=== PATIENT | female | born 1970 | race Caucasian/White ===

== ENCOUNTER 2019-02-24 15:30 | Emergency (ER) | payer SELFPAY ==
--- OUTSIDE RECORDS SUMMARY | 2019-02-24 15:32 | XMS REPORT | Continuity of Care Document ---
:1970 Author Organization [employer] Care Team Providers Name Role Phone [employer] Unavailable Unavailable Problems Problem Status Onset Classification Date Comments Source Date Reported Pain in lower Active Diagnosis 11/14/2017 CL extremity due to Cardiovascular sciatica Precordial chest Active Diagnosis 11/14/2017 CL pain Cardiovascular SOB Active Diagnosis 11/14/2017 CL Cardiovascular Tachycardia Active Diagnosis 11/14/2017 CL Cardiovascular Pre-syncope Active Diagnosis 11/14/2017 CL Cardiovascular Deep Active Diagnosis 11/14/2017 CL phlebothrombosis Cardiovascular in , unspecified trimester PE Active Diagnosis 11/14/2017 CL Cardiovascular Medications Medication Details Route Status Patient Ordering Order Source Instructions Provider Date Tramadol HCl 1 tablet Orally Active 50 MG Orally Wiley CL as needed every 6 hrs Cardiovascular Vit D as direct NA Active Wiley CL Cardiovascular Potassium 1 tablet po Active 20 meq po Wiley CL Chloride daily Cardiovascular Multi For Her not Orally Active - Orally Wiley CL defined Cardiovascular Calcium as direct NA Active Wiley CL Cardiovascular Furosemide 1 tablet Orally Active 20 MG Orally Wiley CL Once a day Cardiovascular Allergies, Adverse Reactions, Alerts Substance Category Reaction Severity Reaction Status Date Comments Source type Reported N.K.D.A. Adverse Info Not Adverse Active CL Reaction Available Reaction 8 Cardiovascula r Immunizations No Data Provided for This Section Results No Data Provided for This Section Pathology Reports No Data Provided for This Section Diagnostic Reports No Data Provided for This Section Consultation Notes No Data Provided for This Section Discharge Summaries No Data Provided for This Section History and Physicals No Data Provided for This Section Vital Signs Vital Sign Value Date Comments Source Weight 155 11/12/2017 CL Cardiovascular Height 62 11/12/2017 CL Cardiovascular Heart Rate 72 11/12/2017 CL Cardiovascular Diastolic (mm Hg) 90 11/12/2017 CL Cardiovascular Systolic (mm Hg) 130 11/12/2017 CL Cardiovascular Encounters No Data Provided for This Section Procedures No Data Provided for This Section Assessment and Plan No Data Provided for This Section Plan of Care No Data Provided for This Section Social History No Data Provided for This Section Family History No Data Provided for This Section Advance Directives No Data Provided for This Section Functional Status No Data Provided for This Section
--- OUTSIDE RECORDS SUMMARY | 2019-02-24 15:32 | XMS REPORT | Clinical Summary ---
:1970 Author Organization [facility] Address [address] [place] [address] Care Team Providers Name Role Phone Emerald Padgett MD Primary Care Provider Allergies No Known Allergies Medications Medication Sig Dispensed Refills Start Date End Date Status esomeprazole (NexIUM) TK 1 C PO QD 0 10/15/2017 Active 40 MG capsule furosemide (LASIX) 20 TK 1 T PO QD 1 10/15/2017 Active mg tablet potassium chloride TK 1 T PO QD WF 1 10/15/2017 Active (KLOR-CON) 10 MEQ CR tablet traMADol (ULTRAM) 50 mg TK 1 T PO Q 6 H 0 09/17/2017 Active tablet PRN cholecalciferol, Take 1,000 Units 0 Active vitamin D3, (VITAMIN by mouth daily. D3) 1,000 unit tablet fluticasone (FLONASE 2 sprays (100 mcg 15.8 mL 0 11/06/2017 Active ALLERGY RELIEF) 50 total) by Each mcg/actuation nasal Nare route daily. sprayIndications: Sinus congestion Active Problems Problem Noted Date Tachycardia 11/06/2017 History of gastritis 11/06/2017 Venous insufficiency 11/06/2017 Neck swelling 11/06/2017 Vitamin D deficiency 11/06/2017 Sinus congestion 11/06/2017 Family History Medical History Relation Name Comments Aneurysm Father Diabetes Mother Hypertension Mother Thyroid disease Mother Relation Name Status Comments Father Mother Alive Social History Tobacco Use Types Packs/Day Years Used Date Former Smoker Smokeless Tobacco: Never Used Tobacco Cessation: Counseling Given: Yes Alcohol Use Drinks/Week oz/Week Comments No Sex Assigned at Date Recorded Not on file Job Start Date Occupation Industry Not on file Not on file Not on file Travel History Travel Start Travel End No recent travel history available. Last Filed Vital Signs Not on file Plan of Treatment Health Maintenance Due Date Last Done Comments INFLUENZA VACCINE 02/13/2019 Results Not on fileafter 02/23/2018 Advance Directives Patient has advance care planning documents on file. For more information, please contact:Placido Patel[address] [place] [address]
--- OUTSIDE RECORDS SUMMARY | 2019-02-24 15:33 | XMS REPORT ---
:1970 Author Organization [employer] Care Team Providers Name Role Phone Shonda Jama Provider Role Unavailable Allergies, Adverse Reactions, Alerts Substance Reaction Event Type N.K.D.A. Info Not Available Non Drug Allergy Problems Problem Type Condition Code Onset Dates Condition Status Assessment Pain in lower extremity due to M54.30 Active sciatica Assessment Precordial chest pain R07.2 Active Assessment SOB (shortness of breath) R06.02 Active Problem Pain in lower extremity due to M54.30 Active sciatica Assessment Tachycardia R00.0 Active Assessment Pre-syncope R55 Active Assessment Deep phlebothrombosis in , O22.30 Active unspecified trimester Assessment PE (pulmonary thromboembolism) I26.99 Active Medications Medication Code Code Instructions Start End Status Dosage System Date Date Tramadol HCl NDC 68195312518 50 MG Orally Active 1 tablet every 6 hrs as needed Vit D NDC 0 Active as direct Potassium NDC 0 20 meq po daily Active 1 tablet Chloride Multi For Her ND 55063408256 - Orally Active not defined Calcium NDC 0 Active as direct Furosemide NDC 50772498679 20 MG Orally Active 1 tablet Once a day Vital Signs Date/Time: November 12, 2017 BMI 28.35 Index Weight 155 lbs Height 62 in Cardiac Monitoring Heart Rate 72 /min Blood Pressure Diastolic 90 mm Hg Blood Pressure Systolic 130 mm Hg Results No Known Results Summary Purpose [employer] Submission
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
[2019-02-24 16:54] LABS: Absolute Lymphocytes (CBC) 2.6 K/uL (0.7-4.9); Hematocrit 38.7 % (36.0-45.0); MPV 7.8 fL (7.6-11.3)
[2019-02-24 17:11] LABS: BUN Blood Urea Nitrogen 12 mg/dL (7-18); Bicarbonate 27 mmol/L (21-32); Glucose Level 83 mg/dL (74-106); Potassium 3.7 mmol/L (3.5-5.1); Sodium Level 143 mmol/L (136-145); Troponin (Emerg Dept Use Only) < 0.02 ng/mL (0.0-0.045)
[2019-02-24 17:25] LABS: Urine Blood NEGATIVE (NEG); Urine Glucose NEGATIVE (NEG); Urine Protein NEGATIVE (NEG); Urine pH 7.5 (5.0-7.0)
--- NOTE | 2019-02-24 17:33 | RAD REPORT ---
EXAM DESCRIPTION: CT - Chest For Pe Angio - 02/24/2019 5:22 pm CLINICAL HISTORY: Chest pain, lower extremity swelling, shortness of breath COMPARISON: None. TECHNIQUE: Dynamically enhanced 3 mm thick images of the chest were obtained during administration o f approximately 150mL Isovue 370 IV contrast. Coronal and oblique MIP reconstruction images were gene rated and reviewed. Exam utilizes a protocol to evaluate the pulmonary arterial tree. All CT scans are performed using dose optimization technique as appropriate and may include automated exposure control or mA/KV adjustment according to patient size. FINDINGS: No pulmonary emboli are identified. The aorta as imaged shows no acute or suspicious finding. No pericardial thickening or effusion. No infiltrate or mass in the lung parenchyma. No pleural effusion or pleural thickening. No mediastinal or hilar suspicious masses. No chest wall masses or abnormal axillary lymphadenopathy. IMPRESSION: No pulmonary emboli identified. No other significant or suspicious findings.
--- NOTE | 2019-02-24 18:15 | ER ---
Nurse's Notes [facility] Name: Rose Marie Lawrence Age: 48 yrs Sex: Female : 1970 Arrival Date: 02/24/2019 Time: 15:32 Bed 5 Private MD: Diagnosis: Chronic embolism and thrombosis of unspecified deep veins of left lower extremity Presentation: 02/24 15:34 Presenting complaint: Patient states: i have lower extremity swelling and i have hx of hj DVT and my chest hurts, hx of PE; reports heavy sharp pain on my chest; reports SOB; reports CP started today;. Transition of care: patient was not received from another setting of care. Onset of symptoms was February 24, 2019. Risk Assessment: Do you want to hurt yourself or someone else? Patient reports no desire to harm self or others. Initial Sepsis Screen: Does the patient meet any 2 criteria? No. Patient's initial sepsis screen is negative. Does the patient have a suspected source of infection? No. Patient's initial sepsis screen is negative. Care prior to arrival: None. 15:34 Method Of Arrival: Ambulatory 15:34 Acuity: WAYNE 3 hj CARDIAC CATH TECHNOLOGIST: 16:43 LMP N/A - . tw2 Historical: - Allergies: 15:37 No Known Allergies; hj - PMHx: 15:37 PE; DVT; hj - PSHx: 15:37 None; hj - Immunization history:: Adult Immunizations. - Social history:: Smoking status: . - Ebola Screening: : Patient denies travel to an Ebola-affected area in the 21 days before illness onset. - Family history:: not pertinent. - Hospitalizations: : No recent hospitalization is reported. Screenin:19 Abuse screen: Denies threats or abuse. Nutritional screening: No deficits noted. tw2 Tuberculosis screening: No symptoms or risk factors identified. Fall Risk None identified. Assessment: 16:43 General: Appears in no apparent distress. obese, well groomed, Behavior is calm, tw2 cooperative, appropriate for age. Pain: Complains of pain in chest and left leg Pain does not radiate. Pain began 2-3 days ago. Neuro: Level of Consciousness is awake, alert, obeys commands, Oriented to person, place, time, situation. Cardiovascular: Heart tones S1 S2 Capillary refill < 3 seconds Patient's skin is warm and dry. Cardiovascular: Edema is 2+ to left midcalf, left ankle and left foot. Respiratory: Airway is patent Respiratory effort is even, unlabored, Respiratory pattern is regular, symmetrical, Breath sounds are clear bilaterally. GI: No signs and/or symptoms were reported involving the gastrointestinal system. Abdomen is round non-distended, obese, : No signs and/or symptoms were reported regarding the genitourinary system. EENT: No signs and/or symptoms were reported regarding the EENT system. Derm: No signs and/or symptoms reported regarding the dermatologic system. Musculoskeletal: Reports pain in left leg. 17:48 Reassessment: Patient appears in no apparent distress at this time. No changes from tw2 previously documented assessment. Patient and/or family updated on plan of care and expected duration. Pain level reassessed. Patient is alert, oriented x 3, equal unlabored respirations, skin warm/dry/pink. 18:41 Reassessment: Patient appears in no apparent distress at this time. No changes from tw2 previously documented assessment. Patient and/or family updated on plan of care and expected duration. Pain level reassessed. Patient is alert, oriented x 3, equal unlabored respirations, skin warm/dry/pink. Vital Signs: 15:37 BP 127 / 73; Pulse 85; Resp 18; Temp 98.1(TE); Pulse Ox 98% on R/A; Weight 61.23 kg; hj Height 5 ft. 3 in. (160.02 cm); Pain 6/10; 16:45 BP 127 / 77; Pulse 65; Resp 17; Pulse Ox 97% on R/A; tw2 17:48 BP 127 / 76; Pulse 73; Resp 15; Pulse Ox 96% on R/A; tw2 18:41 BP 135 / 81; Pulse 70; Resp 17; Pulse Ox 96% on R/A; tw2 15:37 Body Mass Index 23.91 (61.23 kg, 160.02 cm) ED Course: 15:32 Patient arrived in ED. rg4 15:37 Triage completed. hj 15:37 Arm band placed on left wrist. 16:16 Juan Manuel Cuenca MD is Attending Physician. rn 16:16 Bed in low position. Call light in reach. Adult w/ patient. equipment monitor phototypesetting on. Pulse tw2 ox on. NIBP on. 16:19 Sierra, Astrid, RN is Primary Nurse. tw2 16:40 Inserted saline lock: 22 gauge in right antecubital area, using aseptic technique. tw2 Blood collected. 16:44 Patient maintains SpO2 saturation greater than 95% on room air. tw2 16:50 Radiology exam delayed due to lab results not completed at this time. (BUN/Creatinine). vm2 17:07 Radiology exam delayed due to lab results not completed at this time. (BUN/Creatinine). vm2 17:21 CT completed. Patient tolerated procedure well. Patient moved to CT. Patient moved back mo from CT. 17:26 CT Chest For PE Angio In Process Unspecified. EDMS 18:11 Extrem Venous W Compression Kvng US In Process Unspecified. EDMS 18:40 No provider procedures requiring assistance completed. IV discontinued, intact, tw2 bleeding controlled, No redness/swelling at site. Pressure dressing applied. Administered Medications: No medications were administered Outcome: 18:15 Discharge ordered by MD. rn 18:40 Discharged to home ambulatory, with family. tw2 18:40 Condition: stable 18:40 Discharge instructions given to patient, family, Instructed on discharge instructions, follow up and referral plans. medication usage, Demonstrated understanding of instructions, follow-up care, medications, Prescriptions given X 1. 18:41 Patient left the ED. tw2 Signatures: Dispatcher [employer] EDJuan Manuel Byers MD MD rn Joaquin, Henry, RN RN hj Wise, Tara, RN RN tw2 Edie Juárez 4 Sarwat Baxter [place] vm2 Corrections: (The following items were deleted from the chart) 17:57 17:48 Pulse 73bpm; Resp 15bpm; Pulse Ox 96% RA; tw2 tw2
--- NOTE | 2019-02-24 18:16 | EDPHYS ---
Physician Documentation [facility] Name: Rose Marie Lawrence Age: 48 yrs Sex: Female : 1970 Arrival Date: 02/24/2019 Time: 15:32 Bed 5 Private MD: ED Physician Juan Manuel Cuenca HPI: 02/24 16:23 This 48 yrs old Female presents to ER via Ambulatory with complaints of Chest rn Pain, Leg Swelling, Headache. 16:23 The patient or guardian reports chest pain that is located primarily in the anterior rn chest wall. Onset: yesterday. The pain does not radiate. Associated signs and symptoms: Pertinent positives: shortness of breath, Pertinent negatives:. 16:24 The chest pain is described as sharp. Duration: The patient or guardian reports rn multiple episodes, that are intermittent. Modifying factors: The symptoms are alleviated by nothing. the symptoms are aggravated by deep breath. Severity of pain: At its worst the pain was mild in the emergency department the pain is unchanged. The patient has experienced similar episodes in the past. Reports several past diagnoses of DVT/PE, is supposed to be on xarelto, lost insurance so off of xarelto for 3 months, reports 2-3 weeks of LLE swelling and chest pain/sob began yesterday.. 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 tw2 Historical: - Allergies: 15:37 No Known Allergies; hj - PMHx: 15:37 PE; DVT; hj - PSHx: 15:37 None; hj - Immunization history:: Adult Immunizations. - Social history:: Smoking status: . - Ebola Screening: : Patient denies travel to an Ebola-affected area in the 21 days before illness onset. - Family history:: not pertinent. - Hospitalizations: : No recent hospitalization is reported. ROS: 16:24 Constitutional: Negative for fever, chills, and weight loss, Eyes: Negative for injury, rn pain, redness, and discharge, Neck: Negative for injury, pain, and swelling, Cardiovascular: Negative for palpitations Respiratory: Negative for wheezing Abdomen/GI: Negative for abdominal pain, nausea, vomiting, diarrhea, and constipation, MS/Extremity: Negative for injury and deformity, Skin: Negative for injury, rash, and discoloration, Neuro: Negative for weakness, numbness, tingling, and seizure. Exam: 16:24 Constitutional: This is a well developed, well nourished patient who is awake, alert, rn and in no acute distress. Ambulatory to room without difficulty/distress/drop in oxygenation. Head/Face: Normocephalic, atraumatic. Eyes: Pupils equal round and reactive to light, extra-ocular motions intact. Lids and lashes normal. Conjunctiva and sclera are non-icteric and not injected. Cornea within normal limits. Periorbital areas with no swelling, redness, or edema. ENT: MMM Cardiovascular: Regular rate and rhythm. No pulse deficits. Respiratory: Lungs have equal breath sounds bilaterally, clear to auscultation. No increased work of breathing, no retractions or nasal flaring. Abdomen/GI: soft, non-tender MS/ Extremity: Pulses equal, no cyanosis. Neurovascular intact. Full, normal range of motion. + mild bilateral lower ext swelling with LLE 2cm greater circumference compared to RLE Neuro: Awake and alert, GCS 15, oriented to person, place, time, and situation. Cranial nerves II-XII grossly intact. Motor strength 5/5 in all extremities. Sensory grossly intact. Cerebellar exam normal. Normal gait. Vital Signs: 15:37 BP 127 / 73; Pulse 85; Resp 18; Temp 98.1(TE); Pulse Ox 98% on R/A; Weight 61.23 kg; hj Height 5 ft. 3 in. (160.02 cm); Pain 6/10; 16:45 BP 127 / 77; Pulse 65; Resp 17; Pulse Ox 97% on R/A; tw2 17:48 BP 127 / 76; Pulse 73; Resp 15; Pulse Ox 96% on R/A; tw2 18:41 BP 135 / 81; Pulse 70; Resp 17; Pulse Ox 96% on R/A; tw2 15:37 Body Mass Index 23.91 (61.23 kg, 160.02 cm) MDM: 16:16 Patient medically screened. rn 17:50 Differential diagnosis: costochondritis, pericarditis, pleurisy, pneumonia, rn pneumothorax, pulmonary embolus. Data reviewed: vital signs, nurses notes, lab test result(s), EKG, radiologic studies, CT scan, doppler, and as a result, I will discharge patient. Counseling: I had a detailed discussion with the patient and/or guardian regarding: the historical points, exam findings, and any diagnostic results supporting the discharge/admit diagnosis, radiology results, the need for outpatient follow up, to return to the emergency department if symptoms worsen or persist or if there are any questions or concerns that arise at home. 18:10 ED course: U/S bilateral lower ext and ct chest for PE without acute findings. Will dc rn home with xarelto.. 02/24 16:17 Order name: CBC with Diff; Complete Time: 17:40 rn 12 16:17 Order name: Basic Metabolic Panel; Complete Time: 17:40 rn 12 16:17 Order name: Creatinine for Radiology; Complete Time: 17:40 rn 02/24 16:17 Order name: Troponin (emerg Dept Use Only); Complete Time: 17:40 rn 02/24 16:24 Order name: N-Terminal Pro-brain Natriuretic Peptide; Complete Time: 17:40 rn 12 17:17 Order name: Urine Dipstick--Ancillary (enter results); Complete Time: 17:40 bd 02/24 15:38 Order name: EKG - Nurse/Tech; Complete Time: 15:38 hj 02/24 16:17 Order name: Extrem Venous W Compression Kvng US; Complete Time: 18:39 rn 02/24 16:17 Order name: IV Start; Complete Time: 16:45 rn 02/24 16:17 Order name: EKG; Complete Time: 16:22 rn 12 16:17 Order name: EKG - Nurse/Tech; Complete Time: 16:45 rn 12 16:17 Order name: CT Chest For PE Angio; Complete Time: 17:40 rn 02/24 17:17 Order name: Urine --Ancillary (enter results); Complete Time: 17:40 bd Administered Medications: No medications were administered Disposition: 02/24/19 18:15 Discharged to Home. Impression: Chronic embolism and thrombosis of unspecified deep veins of left lower extremity. - Condition is Stable. - Discharge Instructions: Deep Vein Thrombosis. - Prescriptions for Xarelto 20 mg Oral tablet - take 1 tablet by ORAL route once daily; 90 tablet. - Medication Reconciliation Form, Thank You Letter, Antibiotic Education, Prescription Opioid Use form. - Follow up: Private Physician; When: As needed; Reason: Recheck today's complaints, Re-evaluation by your physician. - Problem is an ongoing problem. - Symptoms are unchanged. Signatures: Dispatcher [employer] EDJuan Manuel Byers MD MD rn Joaquin, Henry, RN RN hj Wise, Tara, RN RN tw2 Corrections: (The following items were deleted from the chart) 18:41 18:15 02/24/2019 18:15 Discharged to Home. Impression: Chronic embolism and thrombosis tw2 of unspecified deep veins of left lower extremity. Condition is Stable. Discharge Instructions: Deep Vein Thrombosis. Prescriptions for Xarelto 20 mg Oral tablet - take 1 tablet by ORAL route once daily; 90 tablet. and Forms are Medication Reconciliation Form, Thank You Letter, Antibiotic Education, Prescription Opioid Use. Follow up: Private Physician; When: As needed; Reason: Recheck today's complaints, Re-evaluation by your physician. Problem is an ongoing problem. Symptoms are unchanged. rn
--- NOTE | 2019-02-24 18:21 | RAD REPORT ---
EXAM DESCRIPTION: US - Extrem Venous W Compress Kvng - 02/24/2019 6:11 pm CLINICAL HISTORY: Leg pain and swelling COMPARISON: None. TECHNIQUE: Real-time sonographic evaluation of the bilateral lower extremity common femoral, superfi cial femoral, popliteal and posterior tibial veins was performed. FINDINGS: Normal compressibility, flow augmentation, phasic flow and spontaneous flow are identified in the left and right lower extremity common femoral, superficial femoral, popliteal and posterior t ibial veins. No intraluminal filling defects seen. IMPRESSION: No DVT in either lower extremity.
--- NOTE | 2019-02-25 07:48 | EKG ---
Test Date: 2019-02-24 Test Time: 15:43:50 Interface Analyst: HALEY MEASUREMENT RESULTS: Intervals: Rate: 83 VT: 120 QRSD: 92 QT: 372 QTc: 437 [place]: P: 76 VT: 120 QRS: 80 T: 60 INTERPRETIVE STATEMENTS: Normal sinus rhythm Normal ECG No previous ECG available for comparison Electronically Signed On 02-25-19 07:47:38 CDT by Wisam Castro
== END 2019-02-24 18:41 | disposition home or self-care (01) ==
LOC: ER 15:30
DX: I82.502 Chronic embolism and thrombosis of unspecified deep veins of left lower extremity (principal)
CPT/HCPCS: 36415; 71275; 80048; 81003; 81025; 83880; 84484; 85025; 93005; 93970; 99285; Q9967